=== PATIENT | female | born 1950 | race Caucasian/White ===

== ENCOUNTER 2017-01-30 12:17 | Emergency (ER) | payer MEDICARE ==
[~2017-01-30] VITALS: Ht 172.7 cm; Wt 38.6 kg
--- NOTE | 2017-01-30 12:35 | ED.REPORT ---
HPI-Dyspnea / Wheezing Date of Service Jan 30, 2017 ED Provider: Nelson Rodrigues MD Patient is a 66 year old female with a history of COPD, palpitations and CLL who presents to the ED via EMS complaining of shortness of breath for the past two weeks. She reports occasional wheezing that does not seem worse lately. Per the patient's , she has been developing seasonal allergies that he thinks may have contributed to her difficulty breathing. She denies chest pain, cough or fever. The patient was being seen at her primary care physician's office for a routine check up where she was found to have her sats in the high 70's so she was sent to the ED. Patient reports feeling like it is easier to breath being on oxygen. She is a former smoker who quit in 2006. Dr Sol had previously tried to start home O2 and pt refused, she is now agreeable. Dr Sol is attempting to set up home O2. Nursing Notes Stated Complaint: SOB Nursing Notes Reviewed: Yes Allergies: Coded Allergies: Sulfa (Sulfonamide Antibiotics) (Verified Allergy, Unknown, 01/30/17) Scheduled Albuterol/Ipratropium (Combivent Respimat Inhal Retsof) 120 Spr/4 Gm Inhaler 1 PUFF IH QID Cholecalciferol (Vitamin D3) (Vitamin D3) 1,000 Unit Tab.chew 1,000 UNIT PO DAILY Diltiazem ER (Dilt XR) 120 Mg Cap.er.deg 120 MG PO DAILY Estrogens Conjugated (Premarin) 1.25 Mg Tab 0.625 MG PO DAILY Fluticasone Propionate (Flovent HFA 110 mcg) 12 Gm Aer.w.adap 1 PUFF IH BID General Time Seen by MD: 12:35 Chief Complaint Shortness of breath Hx Obtained From: Patient Arrived By: Ambulance Sudden in Onset?: No Onset Occurred: More than a week ago... (2 weeks) Symptom Duration: Since onset Associated with: Denies: Chest pain, Fever Recent Healthcare: No recent hospitalization, Recent doctor visit Similar Sx Previous: Yes Past Medical History Past Medical History CLL palpitations Reports: COPD Smoking History Former Smoker (quit in 2006) Social History Other Social History: Good social support, Ambulatory Status Independent Review of Systems Constitutional: Denies: Chills, Fever Respiratory: Reports: Shortness of breath, Wheezing, Denies: Non-productive cough Cardiovascular: Denies: Chest pain Complete sys rev & neg: except as marked. Physical Exam Initial Vital Signs Vital Signs (First) Date Time Temp Pulse Resp B/P Pulse Ox O2 Delivery O2 Flow Rate FiO2 01/30/17 12:36 36.7 89 22 137/58 86 Room Air 01/30/17 13:31 2 Initial VS: Reviewed General/Constitutional: Awake, Alert Appearance / Presentation: Positive: Cachectic Neck: Atraumatic, Supple, Full range of motion Respiratory / Chest: Atraumatic poor air movement throughout dyspneic Cardiovascular: Heart rate NL, Regular rhythm, Heart sounds NL, No gallop, No murmurs, No rubs Abdomen: Atraumatic, Soft, Non-tender, BS normoactive Skin: Atraumatic, Color NL, No rash, Warm, Dry Neurologic: Oriented X3, Speech NL, No motor deficits, No sensory deficits Head / Eyes: Atraumatic, Normocephalic, PERRL, EOMI Psychiatric: Affect NL, Mood NL Interpretation & Diagnostics Lab Results Interpretation Result Diagram: 01/30/17 1340 01/30/17 1340 Test 01/30/17 13:40 01/30/17 14:04 White Blood Count 10.9th/mm3 (3.8-10.1) Red Blood Count 5.38mil/mm3 (3.90-5.20) Hemoglobin 15.6g/dL (12.0-15.6) Hematocrit 48.4% (35.0-46.0) Mean Corpuscular Volume 90.0fL (81-100) Mean Corpuscular Hemoglobin 29.0pg (27.0-35.0) Mean Corpuscular Hemoglobin Concent 32.2% (32.0-37.0) Red Cell Distribution Width 14.5% (12.3-15.4) Platelet Count 152bil/L (150-400) Neutrophils (%) (Auto) 77.2% (40-74) Lymphocytes (%) (Auto) 16.4% (14-46) Monocytes (%) (Auto) 5.5% (4-12) Eosinophils (%) (Auto) 0.4% (0-5) Basophils (%) (Auto) 0.3% (0-3) D-Dimer < 0.50mg/L FEU (<0.50) Sodium Level 140mEq/L (134-144) Potassium Level 4.8mEq/L (3.5-5.2) Chloride Level 98mEq/L (97-108) Carbon Dioxide Level 27mmol/L (18-29) Blood Urea Nitrogen 11mg/dL (8-27) Creatinine 0.49mg/dL (0.57-1.00) Estimat Glomerular Filtration Rate 181mL/min (>59) Glucose Level 122mg/dL (60-99) Calcium Level 9.7mg/dL (8.5-10.1) Total Bilirubin 0.5mg/dL (0.0-1.2) Aspartate Amino Transf (AST/SGOT) 23U/L (0-50) Alanine Aminotransferase (ALT/SGPT) 10U/L (0-32) Alkaline Phosphatase 95U/L (25-165) Troponin T < 0.010ug/L (0.0-0.011) Pro-B-Type Natriuretic Peptide 846.2pg/mL (0-301) Total Protein 6.8g/dL (6.4-8.4) Albumin 4.3g/dL (3.4-5.0) Urine Color Straw (YELLOW) Urine Appearance Hazy (CLEAR,HAZY) Urine pH 5.5 (5.0-8.0) Urine Specific [place] 1.010 (1.003-1.035) Urine Protein Tracemg/dL (NEG,TRACE) Urine Glucose (UA) Negativemg/dL (NEGATIVE) Urine Ketones Negativemg/dL (NEGATIVE) Urine Occult Blood Trace (NEGATIVE) Urine Nitrite Negative (NEGATIVE) Urine Bilirubin Negative (NEGATIVE) Urine Urobilinogen Normalmg/dL (NORMAL) Urine Leukocyte Esterase Negative (NEGATIVE) Urine RBC 0-2/hpf (0-2) Urine WBC 0-5/hpf (0-5) Urine Epithelial Cells Occasional/hpf (NONE-MOD) Urine Crystals None seen (NONE SEEN) Urine Bacteria Moderate/hpf (NONE-FEW) Urine Hyaline Casts None/lpf (NONE) Urine Granular Casts None seen (NONE SEEN) Urine Waxy Casts None seen (NONE SEEN) Urine Red Blood Cell Casts None seen (NONE SEEN) Urine White Blood Cell Casts None seen (NONE SEEN) Urine Mucus Present (None Seen) Urine Trichomonas None seen (NONE SEEN) Urine Yeast None (NONE SEEN) Urinalysis Comment None Urine Culture Reflexed Indicated Lab Results Interpretation: Blood gas report on 3L: pH 7.359/pCO2 61/pO2 88.5/cHCO3 (P) 34.2/cBase (B) 7.4 ECG Interpretation ECG Interpretation: poor baseline probable left ventricular hypertrophy Time: 13:25 Interpreted by: ED physician Normal ECG Interpretation: Normal rate (76), Normal sinus rhythm X-Ray Chest Interpretation Chest Xray Interpretation: IMPRESSION: No acute disease. Hyperinflated lungs in keeping with chronic obstructive physiology. Dictated by: Kirit Cota M.D. on 01/30/2017 at 13:21 Approved by: Kirit Cota M.D. on 01/30/2017 at 13:22 View: Portable, 1 view Interpretation / Wet Read by: Interpret - Radiologist Re-Eval/Medical Decision Med Decision/Clinical Course 66-year-old female with severe COPD and gradually worsening dyspnea and hypoxemia. No acute issue is identified today other than her hypoxemia which is previously known but has worsened. Over the embolism was ruled out by negative d-dimer, clinically she does not appear to have congestive heart failure will not find an acute infectious cause and there is really minimal wheezing. Patient much improved with supplemental oxygen. After discussion with Dr. mccormack, she will be discharged home on 2 L, concern for possible CO2 retention given the PCO2 of 61 on 3 L. Re-Evaluation/Progress #1: Time of Eval: 13:34 Patient Status: Condition improved Re-Evaluation/Progress #2: Time of Eval: 15:14 Patient Status: Condition improved Re-Evaluation/Progress Note: Discussed lab results and plan for discharge after confirming with Dr. Sol Re-Evaluation/Progress #3: Time of Eval: 16:01 Re-Evaluation/Progress Note: Discussed plan for home oxygen and discharge. Patient understands and agrees to the plan. All questions were addressed. Consultation : Referral / Consult Name: Jarad Sol MD Consulted With: Primary care physician Call Returned at: 15:40 Corrections Cadet: Agrees with eval, Agrees with plan Note: Discussed plan for home oxygen Counseled Regarding: Diagnosis, Lab results Discharge & Departure Impression: Primary Impression: Respiratory distress Additional Impression: Hypoxemia Disposition: Home Discharge Condition All VS Reviewed: Yes Condition: Stable Additional Instructions: Emergency department evaluation today included interview, examination, chest x- ray and labs. After close coordination with your primary care doctor we are able to discharge him to home with initiation of home oxygen. You will be met at home tonight to start this, keep at 2L at home. Return to ED for increasing shortness of breath. Continue other home medications as before. Referrals: Jarad Sol MD (PCP) Scribe Attestation Portions of this note were transcribed by Alyssa Campoverde. I, Dr. Rodrigues personally performed the history, physical exam and medical decision-making; I reviewed and confirmed the accuracy of the information in the transcribed note. Signed by: Aftab Nath, 01/30/17 and 1600 copies to: Jarad Sol MD, Donald L MD Jan 30, 2017 12:35 Radha Campoverde Jan 30, 2017 12:46
[2017-01-30 12:36] VITALS: BP 137/58; PULSE 89; RESP 22; O2SAT 86
[2017-01-30 13:19] LABS: BASOPHILS % (AUTO) 0.3 % (0-3)
--- NOTE | 2017-01-30 13:23 | DRSVH ---
PROCEDURE: X-RAY CHEST, TWO VIEWS ([id number]) INDICATIONS: dyspnea and hypoxemia TECHNIQUE: 2 views of the chest were acquired. COMPARISON: [facility], , CHEST 2VW, 12/19/2013, 10:43. FINDINGS: Surgical changes and devices: None. Lungs and pleura: No pleural effusions or pneumothorax. Lungs are hyperinflated and there are diffu se interstitial changes. No acute consolidation or interval change. Mediastinum: Mediastinal contours are normal. Heart size is normal. Bones and chest wall: No suspicious bony abnormalities. Soft tissues appear unremarkable. IMPRESSION: No acute disease. Hyperinflated lungs in keeping with chronic obstructive physiology. Dictated by: Kirit Cota M.D. on 01/30/2017 at 13:21 Approved by: Kirit Cota M.D. on 01/30/2017 at 13:22
[2017-01-30 13:31] VITALS: BP 140/79; PULSE 76; RESP 20; O2SAT 95
[2017-01-30] MEDS ORDERED: CHOL10008 PO (13:34)
[2017-01-30] MEDS ORDERED: IPRA4AER IH (13:34)
[2017-01-30] MEDS ORDERED: DILT120C46 PO (13:34)
[2017-01-30] MEDS ORDERED: PREM125 PO (13:34)
[2017-01-30] MEDS ORDERED: FLUT12AE8 IH (13:34)
[2017-01-30 13:54] LABS: EOSINOPHILS % (AUTO) 0.4 % (0-5); MONOCYTES % (AUTO) 5.5 % (4-12); NEUTROPHILS % (AUTO) 77.2 % (40-74); Platelet Count 152 bil/L (150-400)
[2017-01-30 14:16] LABS: TROPONIN T < 0.010 ug/L (0.0-0.011)
[2017-01-30 14:23] VITALS: BP 127/63; PULSE 76; RESP 20; O2SAT 100
[2017-01-30 14:34] LABS: APPEARANCE,URINE HAZY (CLEAR,HAZY); COLOR,URINE STRAW (YELLOW)
[2017-01-30 14:35] LABS: OCCULT BLOOD,URINE TRACE (NEGATIVE); PH,URINE 5.5 (5.0-8.0); UROBILINOGEN,URINE NORMAL (NORMAL)
--- NOTE | 2017-01-30 14:59 | ABG ---
DateTimeAnalyzed 14:50:24 -_ pH ____7.359 - 7.350 7.450 pCO2 ___60.7__ -mmHg 35.0 45.0 pO2 ___88.5__ -mmHg 70.0 100 HCO3- ___34.2__ -mmol/L 22.0 26.0 ABE ____7.4__ -mmol/L -2.0 2.0 tHb ___15.1__ -g/dL 12.0 18.0 O2Hb ___95.0__ -% 95.0 COHb ____1.5__ -% 1.5 MetHb ____0.4__ -% 0.4 1.5 sO2 ___96.8__ -% FIO2 ___21.0__ -% Drawn By jh - Date/Time Notified____ 14:58:00 -_ Liter_Flow ____3.00_ -L/min Oxygen Device 1 __CANNULA - Notified By jh - Notified Whom ____slack - K+ ____4.1__ -mmol/L tO2 ___20.3__ -Vol% Hernandez test _Positive -
[2017-01-30 16:28] VITALS: BP 126/58; PULSE 76; RESP 20; O2SAT 96
--- NOTE | 2017-01-31 01:10 | ABG ---
DateTimeAnalyzed 14:50:24 -_ pH ____7.359 - pCO2 ___60.7__ -mmHg pO2 ___88.5__ -mmHg HCO3- ___34.2__ -mmol/L ABE ____7.4__ -mmol/L tHb ___15.1__ -g/dL O2Hb ___95.0__ -% COHb ____1.5__ -% MetHb ____0.4__ -% sO2 ___96.8__ -% FIO2 ___32.0__ -% Drawn By jh - Date/Time Notified____ 14:58:00 -_ Notified By jh - Notified Whom ____slack - K+ ____4.1__ -mmol/L tO2 ___20.3__ -Vol% Hernandez test _Positive -
--- NOTE | 2017-01-31 01:12 | ABG ---
DateTimeAnalyzed 14:50:24 -_ pH ____7.359 - 7.350 7.450 pCO2 ___60.7__ -mmHg 35.0 45.0 pO2 ___88.5__ -mmHg 70.0 100 HCO3- ___34.2__ -mmol/L 22.0 26.0 ABE ____7.4__ -mmol/L -2.0 2.0 tHb ___15.1__ -g/dL 12.0 18.0 O2Hb ___95.0__ -% 95.0 COHb ____1.5__ -% 1.5 MetHb ____0.4__ -% 0.4 1.5 sO2 ___96.8__ -% FIO2 ___32.0__ -% Drawn By jh - Date/Time Notified____ 14:58:00 -_ Notified By jh - Notified Whom ____slack - K+ ____4.1__ -mmol/L tO2 ___20.3__ -Vol% Hernandez test _Positive -
== END 2017-01-30 17:02 | disposition home or self-care (01) ==
LOC: EDBD 12:17 → SED 12:17
DX: R09.02 Hypoxemia (principal); R06.00 Dyspnea, unspecified; J44.9 Chronic obstructive pulmonary disease, unspecified; Z87.891 Personal history of nicotine dependence; Z88.2 Allergy status to sulfonamides
CPT/HCPCS: 36415; 36620; 71020; 80053; 81000; 82375; 82803; 83880; 84484; 85025; 85378; 87086; 93005; 94640; 99285; G0463; J7613